=== PATIENT | male | born 1975 | race Caucasian/White ===

== ENCOUNTER 2024-11-27 12:22 | Emergency (ER) | payer SELFPAY ==
[2024-11-27 12:57] VITALS: BP 132/83; PULSE 89; RESP 18; TEMP 36.2; O2SAT 100; BMI 35.2
[2024-11-27 14:16] LABS: Hematocrit 45.5 % (40-54); Hemoglobin 15.5 g/dL (13.0-16.5); Immature Granulocytes Count 0.350 X10^3/uL (0.0-0.0); Mean Corp Hgb Conc 34.1 g/dL (32-36); Mean Corpuscular Volume 79.8 fL (80-94); Mean Platelet Vol. 9.9 fl (6.2-12.0); NRBC Flagged by Analyzer 0 % (0-5); Platelet Count 196 K/mm3 (150-450); RBC Distribution Width CV 13.8 % (11.6-14.6); RBC Distribution Width SD 40.0 fl (35.1-43.9); Red Blood Count 5.70 M/mm3 (4.6-6.2); White Blood Count 15.7 K/mm3 (4.4-11.0)
[2024-11-27] MEDS: 0.9% Normal Saline (1000mL) 1,000 ML 999 ML IV (14:22)
[2024-11-27 14:23] VITALS: BP 114/74; PULSE 70; RESP 12; O2SAT 95
[2024-11-27 15:16] LABS: Anion Gap 17 (5-15); BUN 22 mg/dL (4-19); BUN/Creat Ratio 12.4 RATIO (10-20); Calcium,Total 9.8 mg/dL (7.6-11.0); Carbon Dioxide 21.9 mmol/L (21.0-32.0); Chloride 100 mmol/L (98-108); Estimated Creatinine Clearance 65.37 ml/min (50-250); Glucose 182 mg/dL (70-99); Potassium 4.2 mmol/L (3.3-5.1)
[2024-11-27 16:00] VITALS: BP 118/70; PULSE 74; RESP 14
[2024-11-27 17:31] VITALS: BP 118/80; PULSE 86; RESP 16; TEMP 36.7; O2SAT 99
== END 2024-11-27 18:04 | disposition home or self-care (01) ==
PROVIDERS: Emergency Provider Emergency Medicine; Visit Provider Emergency Medicine
DX: E86.0 Dehydration (principal); R73.9 Hyperglycemia, unspecified; Z87.891 Personal history of nicotine dependence
CPT/HCPCS: 80048; 85025; 93005; 96360; 99285; A4216